=== PATIENT | male | born 1985 ===

== ENCOUNTER 2019-04-11 14:59 | Outpatient (CLI) | payer OTHER | END 2019-04-11 15:03 | disposition home or self-care (01) | LOC: SONOGRAMA 14:59 | DX: K40.01 Bilateral inguinal hernia, with obstruction, without gangrene, recurrent (principal) ==

== ENCOUNTER 2020-03-18 15:27 | Emergency (ER) | payer OTHER ==
[~2020-03-18] VITALS: Ht 185.4 cm; Wt 99.8 kg
== END 2020-03-18 17:50 | disposition home or self-care (01) ==
LOC: ER 15:27
DX: T88.1XXA Other complications following immunization, not elsewhere classified, initial encounter (principal); Z20.828 Contact with and (suspected) exposure to other viral communicable diseases

== ENCOUNTER 2021-09-17 05:42 | Day surgery (SDC) | payer OTHER | END 2021-09-17 18:02 | disposition home or self-care (01) | LOC: CIR.AMB 05:42 | PROVIDERS: ATTEND Surgery | DX: K40.31 Unilateral inguinal hernia, with obstruction, without gangrene, recurrent (principal); Z20.822 Contact with and (suspected) exposure to COVID-19; Z86.16 Personal history of COVID-19; Z87.442 Personal history of urinary calculi; K21.9 Gastro-esophageal reflux disease without esophagitis ==